=== PATIENT | female | born 1990 | race Caucasian/White ===

== ENCOUNTER 2017-08-02 18:12 | Inpatient (IN) | payer SELFPAY ==
[~2017-08-02] VITALS: Ht 154.9 cm; Wt 71.9 kg
[2017-08-02] MEDS ORDERED: LAMICTAL 25MG T25 MG PO (18:20)
[2017-08-02] MEDS ORDERED: PROTONIX20 MG PO (18:21)
[2017-08-02] MEDS ORDERED: REQUIP0.25 MG (18:21)
[2017-08-02] MEDS ORDERED: XANAX 0.5MG0.5 MG PO (18:21)
[2017-08-02 19:20] LABS: BASO % 0.3 % (0.0-2.0); GRAN # 9.2 (1.4-6.5); GRAN % 82.8 % (42.2-75.2); HEMOGLOBIN 12.4 g/dl (12.5-16.0); LYMPH # 0.7 (1.2-3.4); LYMPH % 6.6 % (20.0-51.0); MEAN CELL VOLUME 84 fl (80.0-100.0); MEAN CORPUSCULAR HEMOGLOBIN 29 pg (27.0-31.0); MEAN CORPUSCULAR HGB CONC 34 g/dl (33.0-37.0); MEAN PLATELET VOLUME 10.4 fl (7.4-10.4); MONO # 1.1 (0.1-0.6); MONO % 9.8 % (1.7-9.3); PLATELET COUNT 159 K/mm3 (130-400); RED BLOOD COUNT 4.35 M/mm3 (4.10-5.30); REDCELL DISTRIBUTION WIDTH-CV 12.6 % (11.5-14.5); WHITE BLOOD COUNT 11.1 K/mm3 (4.8-10.8)
[2017-08-02 19:21] LABS: HEMATOCRIT 36.6 % (37.0-47.0)
[2017-08-02 19:25] LABS: PH 5 (5-8); SQUAMOUS EPITHELIAL 0-2 /hpf; URINE APPEARANCE Hazy; URINE BACTERIA Many /hpf; URINE BILIRUBIN Positive (NEGATIVE); URINE BLOOD 1+ (NEGATIVE); URINE COLOR Amber; URINE GLUCOSE Negative (NEGATIVE); URINE KETONE 2+ (NEGATIVE); URINE RBC 0-2 /hpf; URINE UROBILINOGEN >=4.0 mg/dL (NEGATIVE); URINE WBC >50 /hpf
[2017-08-02 19:32] LABS: ADJUSTED CALCIUM 9.3 mg/dL (8.4-10.2); ALBUMIN 3.9 gm/dL (3.5-5.0); BILIRUBIN,TOTAL 3.3 mg/dL (0.0-1.0); CALCIUM 9.2 mg/dL (8.4-10.2); CREATININE, serum 0.93 mg/dL (0.52-1.25); POTASSIUM 3.6 mmol/L (3.4-5.0); TOTAL PROTEIN 7.3 gm/dL (6.4-8.2)
[2017-08-02 22:42] VITALS: BP 89/45; PULSE 78; TEMP 98.1
[2017-08-03 05:01] VITALS: BP 99/56; PULSE 69; TEMP 99.1
[2017-08-03 08:00] VITALS: BP 95/57; PULSE 72; TEMP 98.1
[2017-08-03 09:38] LABS: MEAN CELL VOLUME 86 fl (80.0-100.0); MEAN CORPUSCULAR HGB CONC 33 g/dl (33.0-37.0); MEAN PLATELET VOLUME 10.9 fl (7.4-10.4); PLATELET COUNT 127 K/mm3 (130-400); RED BLOOD COUNT 3.87 M/mm3 (4.10-5.30); REDCELL DISTRIBUTION WIDTH-CV 12.7 % (11.5-14.5); WHITE BLOOD COUNT 7.7 K/mm3 (4.8-10.8)
[2017-08-03 09:40] LABS: HEMATOCRIT 33.4 % (37.0-47.0); MEAN CORPUSCULAR HEMOGLOBIN 28 pg (27.0-31.0)
[2017-08-03 09:41] LABS: ADD PATHOLOGY DIFF REVIEW NO
[2017-08-03 09:50] LABS: ADJUSTED CALCIUM 9.3 mg/dL (8.4-10.2); CALCIUM 8.5 mg/dL (8.4-10.2); CREATININE, serum 0.81 mg/dL (0.52-1.25); POTASSIUM 3.6 mmol/L (3.4-5.0); TOTAL PROTEIN 6.2 gm/dL (6.4-8.2)
[2017-08-03 10:15] LABS: BAND 23 % (0-10); EOSINOPHIL 1 % (0-4); METAMYELOCYTE 2 % (0-0); MYELOCYTE 2 % (0-0); NEUTROPHILS 64 % (42.0-75.2); TOTAL CELLS COUNTED 100
[2017-08-03 10:16] LABS: PLATELET ESTIMATE NORMAL (NORMAL)
[2017-08-03 12:06] VITALS: BP 104/59; PULSE 78; TEMP 98.6
[2017-08-03 16:40] VITALS: BP 111/66; PULSE 75; TEMP 99.2
[2017-08-03 20:01] VITALS: BP 113/73; PULSE 79; TEMP 100
[2017-08-04] VITALS (7 sets, daily range): BP systolic 100–125; BP diastolic 72–81; PULSE 58–74; TEMP 98.1–99.8
[2017-08-04 08:33] LABS: ADJUSTED CALCIUM 9.5 mg/dL (8.4-10.2); ALBUMIN 2.8 gm/dL (3.5-5.0); BILIRUBIN,TOTAL 1.6 mg/dL (0.0-1.0); CALCIUM 8.5 mg/dL (8.4-10.2); CREATININE, serum 0.72 mg/dL (0.52-1.25); POTASSIUM 3.8 mmol/L (3.4-5.0); TOTAL PROTEIN 5.8 gm/dL (6.4-8.2)
[2017-08-04 13:31] LABS: MEAN CELL VOLUME 84 fl (80.0-100.0); MEAN CORPUSCULAR HGB CONC 34 g/dl (33.0-37.0); MEAN PLATELET VOLUME 11.8 fl (7.4-10.4); PLATELET COUNT 133 K/mm3 (130-400); REDCELL DISTRIBUTION WIDTH-CV 12.9 % (11.5-14.5); WHITE BLOOD COUNT 6.7 K/mm3 (4.8-10.8)
[2017-08-04 14:06] LABS: HEMATOCRIT 32.6 % (37.0-47.0); HEMOGLOBIN 11.2 g/dl (12.5-16.0); MEAN CORPUSCULAR HEMOGLOBIN 29 pg (27.0-31.0)
[2017-08-04 16:05] LABS: BASO % 0.5 % (0.0-2.0); EOS # 0.1 (0.0-0.7); EOS % 1.1 % (0-4.0); GRAN # 3.9 (1.4-6.5); GRAN % 58.8 % (42.2-75.2); LYMPH # 1.5 (1.2-3.4); LYMPH % 22.3 % (20.0-51.0); MONO # 0.9 (0.1-0.6); MONO % 13.8 % (1.7-9.3)
[2017-08-05 03:33] VITALS: BP 118/72; PULSE 76; TEMP 98.3
[2017-08-05 07:57] VITALS: BP 108/78; PULSE 58; TEMP 97.8
[2017-08-05 08:35] LABS: BASO % 0.5 % (0.0-2.0); EOS # 0.1 (0.0-0.7); EOS % 1.6 % (0-4.0); GRAN # 2.5 (1.4-6.5); LYMPH # 1.3 (1.2-3.4); MEAN CELL VOLUME 85 fl (80.0-100.0); MEAN CORPUSCULAR HGB CONC 33 g/dl (33.0-37.0); MONO # 0.5 (0.1-0.6); MONO % 11.4 % (1.7-9.3); PLATELET COUNT 155 K/mm3 (130-400); RED BLOOD COUNT 3.34 M/mm3 (4.10-5.30); REDCELL DISTRIBUTION WIDTH-CV 13.1 % (11.5-14.5); WHITE BLOOD COUNT 4.4 K/mm3 (4.8-10.8)
[2017-08-05 08:37] LABS: HEMATOCRIT 28.5 % (37.0-47.0); HEMOGLOBIN 9.4 g/dl (12.5-16.0); MEAN CORPUSCULAR HEMOGLOBIN 28 pg (27.0-31.0)
[2017-08-05 08:56] LABS: ADJUSTED CALCIUM 9.3 mg/dL (8.4-10.2); ALBUMIN 2.6 gm/dL (3.5-5.0); BILIRUBIN,TOTAL 0.7 mg/dL (0.0-1.0); CALCIUM 8.2 mg/dL (8.4-10.2); CREATININE, serum 0.68 mg/dL (0.52-1.25); POTASSIUM 3.2 mmol/L (3.4-5.0); TOTAL PROTEIN 5.6 gm/dL (6.4-8.2)
[2017-08-05 11:42] VITALS: BP 113/78; PULSE 69; TEMP 97.5
[2017-08-05 15:57] VITALS: BP 102/72; PULSE 58; TEMP 98.1
[2017-08-05 19:28] VITALS: BP 120/77; PULSE 60; TEMP 98
[2017-08-05 23:50] VITALS: BP 120/64; PULSE 82; TEMP 98.8
[2017-08-06 03:40] VITALS: BP 114/82; PULSE 50; TEMP 98.6
[2017-08-06 07:54] LABS: BASO % 0.8 % (0.0-2.0); EOS # 0.1 (0.0-0.7); EOS % 2.2 % (0-4.0); GRAN # 2.7 (1.4-6.5); GRAN % 53.3 % (42.2-75.2); LYMPH # 1.7 (1.2-3.4); LYMPH % 33.5 % (20.0-51.0); MEAN CELL VOLUME 86 fl (80.0-100.0); MEAN CORPUSCULAR HGB CONC 33 g/dl (33.0-37.0); MEAN PLATELET VOLUME 10.6 fl (7.4-10.4); MONO # 0.5 (0.1-0.6); PLATELET COUNT 200 K/mm3 (130-400); REDCELL DISTRIBUTION WIDTH-CV 13.1 % (11.5-14.5)
[2017-08-06 07:56] LABS: HEMATOCRIT 30.1 % (37.0-47.0); MEAN CORPUSCULAR HEMOGLOBIN 29 pg (27.0-31.0)
[2017-08-06 08:07] LABS: ADJUSTED CALCIUM 9.4 mg/dL (8.4-10.2); ALBUMIN 2.9 gm/dL (3.5-5.0); BILIRUBIN,TOTAL 0.6 mg/dL (0.0-1.0); CALCIUM 8.5 mg/dL (8.4-10.2); CREATININE, serum 0.67 mg/dL (0.52-1.25); POTASSIUM 3.7 mmol/L (3.4-5.0); TOTAL PROTEIN 5.9 gm/dL (6.4-8.2)
[2017-08-06 08:10] VITALS: BP 126/81; PULSE 50; TEMP 98.3
[2017-08-06 11:38] VITALS: BP 126/86; PULSE 61; TEMP 98.3
[2017-08-06] MEDS ORDERED: CIPRO 500MG TA500 MG PO (12:49)
[2017-08-06] MEDS ORDERED: ZOFRAN 4MG T4 MG/TAB PO (12:56)
== END 2017-08-06 14:25 | disposition home or self-care (01) | DRG 872 ==
LOC: COL.ER 18:12 → MEDICAL 21:23
PROVIDERS: Emergency Medicine; Internal Medicine; Physician Assistant
DX: A41.9 Sepsis, unspecified organism (principal); N10 Acute pyelonephritis; E87.1 Hypo-osmolality and hyponatremia; G40.909 Epilepsy, unspecified, not intractable, without status epilepticus; E11.9 Type 2 diabetes mellitus without complications; K76.9 Liver disease, unspecified; E87.6 Hypokalemia; B96.20 Unspecified Escherichia coli [E. coli] as the cause of diseases classified elsewhere; Z85.42 Personal history of malignant neoplasm of other parts of uterus
CPT/HCPCS: 99223-AI; 99232-AI; 99233-AI; 99239; J0696; J1650; J1956; J2270; J2405; J3010; J3480; J7030; Q9967

== ENCOUNTER 2017-11-05 16:26 | Emergency (ER) | payer OTHER ==
[~2017-11-05] VITALS: Ht 154.9 cm; Wt 63.6 kg
[~2017-11-05 16:26] MED LIST: CIPRO 500MG TA500 MG PO; LAMICTAL 25MG T25 MG PO; PROTONIX20 MG PO; REQUIP0.25 MG; XANAX 0.5MG0.5 MG PO; ZOFRAN 4MG T4 MG/TAB PO
[2017-11-05 16:38] VITALS: TEMP 98.3
[2017-11-05 17:20] VITALS: BP 140/81; PULSE 73
== END 2017-11-05 17:22 | disposition home or self-care (01) ==
LOC: COL.ER 16:26
DX: H00.015 Hordeolum externum left lower eyelid (principal); K21.9 Gastro-esophageal reflux disease without esophagitis